=== PATIENT | male | born 2000 | race Caucasian/White ===

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

== ENCOUNTER → 2024-11-02 13:46 | Outpatient (BNVA) | payer OTHER, SELFPAY | PROVIDERS: PCP Pediatrics Adolescent Medicine; Visit Provider Internal Medicine Cardiovascular Disease | DX: R07.9 Chest pain, unspecified (principal) | CPT/HCPCS: 93005 ==

== ENCOUNTER 2024-12-14 14:55 | Outpatient (CLI) | payer OTHER, SELFPAY ==
--- NOTE | 2024-12-14 15:00 | USCV_ITS ---
Emmy Francisco Age: 24 Gender: M : 2000 Exam Date: 12/14/2024 15:25 Ordering Phys: Smith Mccoy MD ([email or web address]) Technologist: CATHLEEN [place]am Location[place] [facility] [place]: cp sob BP: 136 / 66 HR: 72 Rhythm: Sinus Technical Quality: Adequate MEASUREMENTS (Male / Female) Normal Values 2D ECHO LV Diastolic Diameter PLAX 5.4 cm 4.2 - 5.9 / 3.9 - 5.3 cm IVS Diastolic Thickness 0.6 cm 0.6 - 1.0 / 0.6 - 0.9 cm IVS Systolic Thickness 0.7 cm LVPW Diastolic Thickness 0.9 cm 0.6 - 1.0 / 0.6 - 0.9 cm LVPW Systolic Thickness 0.8 cm LV Ejection Fraction 2D Teich 19.7 % LV Ejection Fraction MOD 4C 75.3 % LV Ejection Fraction MOD 2C 61.2 % LV Ejection Fraction 2C AL 64.0 % RA Systolic Volume 4C AL 28.2 ml RA Systolic Volume 4C MOD 26.9 ml LA Sys Volume AL 31.9 cm cubed LA Sys Volume Index AL 15.5 cm cubed/m squared IVC Diameter 1.3 cm M-MODE LA Ao Ratio MM 1.5 AV Cusp Separation MM 1.8 cm DOPPLER AV Peak Velocity 142.0 cm/s LVOT Peak Velocity 132.0 cm/s MV Peak Velocity 103.0 cm/s MV Area PHT 4.3 cm squared Mitral E to A Ratio 1.1 TR Peak Velocity 251.0 cm/s TR Peak Gradient 25.2 mmHg TV Peak E Velocity 91.0 cm/s PV Peak Velocity 137.0 cm/s FINDINGS Left Ventricle Normal left ventricular size, systolic function and wall thickness with no regional wall motion abnormality. Left ventricular ejection fraction is 64%. Normal left ventricular diastolic function. Right Ventricle Normal right ventricular size and systolic function. Right Atrium Normal right atrial size. Left Atrium Normal left atrial size. IA Septum Normal appearance of the interatrial septum. Mitral Valve Normal mitral valve structure. No mitral valve stenosis or regurgitation. Aortic Valve Normal aortic valve structure. No aortic valve stenosis or regurgitation. Tricuspid Valve Normal tricuspid valve structure. Trace tricuspid regurgitation. Normal pulmonary pressure. Pulmonic Valve Normal pulmonic valve structure. No pulmonic valve stenosis or regurgitation. Pericardium No pericardial effusion. Aorta Normal diameter of the aortic root and ascending thoracic aorta. IVC Normal IVC diameter. CONCLUSIONS Normal left ventricular size, systolic function and wall thickness with ejection fraction of 64%. Normal right ventricular size and systolic function. No significant valvular abnormalities. Smith Mccoy MD, FACC (Electronically Signed) Final Date: 22 December 2024 12:51 S
== END 2024-12-14 14:56 | disposition home or self-care (01) ==
LOC: RAD 14:56
PROVIDERS: PCP Pediatrics Adolescent Medicine; Visit Provider Internal Medicine Cardiovascular Disease
DX: R07.9 Chest pain, unspecified (principal)
CPT/HCPCS: 93306